=== PATIENT | male | born 1970 | race Caucasian/White ===

== ENCOUNTER 2023-02-20 11:05 | Day surgery (SDC) | payer OTHER ==
[2023-02-17 15:00] VITALS: BMI 25.0
[2023-02-20 11:57] VITALS: TEMP 97.8
[2023-02-20 12:52] VITALS: RESP 20
[2023-02-20 13:26] VITALS: BP 109/60; PULSE 56
== END 2023-02-20 13:05 | disposition home or self-care (01) ==
LOC: FASU-ENDO 11:05
PROVIDERS: ATTEND Internal Medicine Gastroenterology
PROC: 0DJD8ZZ Inspection of Lower Intestinal Tract, Via Natural or Artificial Opening Endoscopic (ICD-10-PCS; principal; 2023-02-20 12:18)
DX: Z12.11 Encounter for screening for malignant neoplasm of colon (principal); K57.30 Diverticulosis of large intestine without perforation or abscess without bleeding